=== PATIENT | male | born 1980 | race Hispanic/Latino ===

== ENCOUNTER 2019-03-28 15:49 | Emergency (ER) | payer SELFPAY ==
--- NOTE | 2019-03-28 17:10 | RAD REPORT ---
EXAM DESCRIPTION: RAD - Abdomen Acute Series - 03/28/2019 4:58 pm CLINICAL HISTORY: Abdominal pain FINDINGS: The bowel gas pattern is unremarkable. Free air is not seen beneath the diaphragm Lungs appear clear of acute infiltration. Vascular calcifications
[2019-03-28] MEDS ORDERED: HALOPERIDOL LACT 5 MG/ML INJ ONE (17:17)
[2019-03-28] MEDS ORDERED: NA CHLORIDE 0.9% 2,000 ML ONE (17:18)
[2019-03-28] MEDS ORDERED: DIPHENHYDRAMINE 50 MG/ML VIAL ONE (17:18)
[2019-03-28 17:27] LABS: Absolute Lymphocytes (CBC) 1.9 K/uL (0.7-4.9); Basophils % 0.2 % (0-1.3); Lymphocytes % 13.3 % (15.3-44.8); MPV 8.6 fL (7.6-11.3); Monocytes % 5.6 % (3.3-12.3); RBC Red Blood Cell Count 5.79 M/uL (4.33-5.43)
[2019-03-28 17:31] LABS: ALT/SGPT 20 U/L (12-78); AST/SGOT 11 U/L (15-37); Albumin 3.9 g/dL (3.4-5.0); Alkaline Phosphatase 115 U/L (45-117); BUN Blood Urea Nitrogen 15 mg/dL (7-18); Bicarbonate 29 mmol/L (21-32); Bilirubin Direct 0.2 mg/dL (0-0.2); Bilirubin Total 0.7 mg/dL (0.2-1.0); Glucose Level 257 mg/dL (74-106); Lipase 55 U/L (73-393); Potassium 4.1 mmol/L (3.5-5.1); Protein, Total 8.2 g/dL (6.4-8.2); Sodium Level 132 mmol/L (136-145)
[2019-03-28 17:47] LABS: Arterial Blood Carboxyhemoglob 0.2 % (0-1.5); Blood Gas Oxyhemoglobin 94.9 % (94-97); Blood O2 Saturation 95.9 % (92-98.5)
--- NOTE | 2019-03-28 19:06 | ER ---
Nurse's Notes [facility] Name: Ben Rudolph Age: 38 yrs Sex: Male : 1980 Arrival Date: 03/28/2019 Time: 15:52 Bed 8 Private MD: None, None Diagnosis: Nausea and vomiting Presentation: 03/28 16:07 Presenting complaint: Patient states: upper abd pain and nausea/vomiting that began aa5 . Pt's reports pt was seen in [place] [facility] twice over the weekend and CT scan was negative, reports being prescribed promethazine and ranitidine without relief of symptoms. Transition of care: patient was not received from another setting of care. Onset of symptoms was March 2019. Risk Assessment: Do you want to hurt yourself or someone else? Patient reports no desire to harm self or others. Initial Sepsis Screen: Does the patient meet any 2 criteria? No. Patient's initial sepsis screen is negative. Does the patient have a suspected source of infection? No. Patient's initial sepsis screen is negative. Care prior to arrival: None. 16:07 Acuity: LAVONNE 2 aa5 16:07 Method Of Arrival: Ambulatory aa5 Historical: - Allergies: 16:11 No Known Allergies; aa5 - Home Meds: 16:11 promethazine 25 mg oral tab every 6 hours [Active]; ranitidine HCl 150 mg oral tab 2 aa5 times per day [Active]; Metformin Oral [Active]; - PMHx: 16:11 Diabetes - NIDDM; aa5 - PSHx: 16:11 None; aa5 - Immunization history:: Adult Immunizations unknown. - Social history:: Smoking status: Patient uses tobacco products, smokes one-half pack cigarettes per day. - Ebola Screening: : No symptoms or risks identified at this time. Screenin:45 Abuse screen: Denies threats or abuse. Denies injuries from another. Nutritional sg screening: No deficits noted. Tuberculosis screening: No symptoms or risk factors identified. Never had TB. Fall Risk None identified. Assessment: 16:40 General: Appears in no apparent distress. ill, slender, well groomed, well developed, sg well nourished, Behavior is cooperative, appropriate for age, quiet. Pain: Complains of pain in abdomen Quality of pain is described as aching, tender. Neuro: Level of Consciousness is awake, alert, obeys commands, Oriented to person, place, time, situation, Health Sanitarian are equal bilaterally Moves all extremities. Full function Speech is normal, Facial symmetry appears normal. Cardiovascular: Patient's skin is warm and dry. Respiratory: Airway is patent Respiratory effort is even, unlabored, Respiratory pattern is regular, symmetrical. GI: Abdomen is round non-distended. : No signs and/or symptoms were reported regarding the genitourinary system. EENT: No signs and/or symptoms were reported regarding the EENT system. Derm: Skin is pink, warm \T\ dry. Musculoskeletal: Circulation, motion, and sensation intact. Range of motion: intact in all extremities, Swelling absent. 19:11 General: Appears in no apparent distress. slender, Behavior is cooperative, quiet. ea Pain: Denies pain. Neuro: Level of Consciousness is awake, alert, obeys commands, Oriented to person, place, time, situation. Cardiovascular: Patient's skin is warm and dry. Respiratory: Airway is patent Respiratory effort is even, unlabored, Respiratory pattern is regular, symmetrical. Derm: Skin is pink, warm \T\ dry. Musculoskeletal: Circulation, motion, and sensation intact. 20:16 Reassessment: Patient and/or family updated on plan of care and expected duration. Pain ea level reassessed. Pt resting with eyes closed. Pt blood pressure elevated, denies headache, chest pain or SOB. Provider aware. 20:42 Reassessment: Patient and/or family updated on plan of care and expected duration. Pain ea level reassessed. Provider at bedside, medication order obtained, medication administered pt tolerated well. 21:41 Reassessment: Patient and/or family updated on plan of care and expected duration. Pain ea level reassessed. Pt resting with eyes closed, respirations even and unlabored. Chest expansions even and symmetrical. 21:42 Reassessment: PTs BP continues to be elevated, provider aware, pt to be monitored. ea Awaiting for blood pressure to decrease before discharge. 22:05 Reassessment: Patient and/or family updated on plan of care and expected duration. Pain ea level reassessed. Patient is alert, oriented x 3, equal unlabored respirations, skin warm/dry/pink. Pt taken to CT. 22:30 Reassessment: Patient and/or family updated on plan of care and expected duration. Pain ea level reassessed. Patient is alert, oriented x 3, equal unlabored respirations, skin warm/dry/pink. Returned from CT. 23:30 Reassessment: Patient and/or family updated on plan of care and expected duration. Pain ea level reassessed. Patient is alert, oriented x 3, equal unlabored respirations, skin warm/dry/pink. Pt reports he feels a little better but still feels nauseous. 03/29 00:15 Reassessment: Patient and/or family updated on plan of care and expected duration. Pain ea level reassessed. Patient is alert, oriented x 3, equal unlabored respirations, skin warm/dry/pink. Pt reports he feels hungry, provider notified and verbalized he could have something to eat. Pt given sandwich and chips. 00:30 Reassessment: Patient and/or family updated on plan of care and expected duration. Pain ea level reassessed. Patient is alert, oriented x 3, equal unlabored respirations, skin warm/dry/pink. Pt ate a few bites of sandwich tolerated well. Pt tolerating PO fluids well. 01:42 Reassessment: Patient and/or family updated on plan of care and expected duration. Pain ea level reassessed. Patient is alert, oriented x 3, equal unlabored respirations, skin warm/dry/pink. Pt tolerated PO fluids and food. Pt reports he is feeling better. Blood pressure decreased. Patient states feeling better. Patient states symptoms have improved. 01:58 Reassessment: Patient and/or family updated on plan of care and expected duration. Pain ea level reassessed. Patient is alert, oriented x 3, equal unlabored respirations, skin warm/dry/pink. Discharge instruction given to patient and , both verbalized the understanding of instruction. Pt left ED per wheelchair, accompanied by family. Pt tolerating well. Pt assisted to private vehicle per ED staff, pt tolerated well. Patient states feeling better. Patient states symptoms have improved. Vital Signs: 03/28 16:09 BP 119 / 86; Pulse 113; Resp 20; Temp 98.9(O); Pulse Ox 100% on R/A; Weight 60.78 kg aa5 (R); Height 5 ft. 5 in. (165.10 cm) (R); Pain 9/10; 17:29 BP 119 / 85; Pulse 111; Resp 20; Pulse Ox 100% on R/A; sg 18:55 BP 153 / 84; Pulse 100; Resp 17; Pulse Ox 100% on R/A; sg 19:10 BP 207 / 130; Pulse 106; Resp 18; Pulse Ox 100% ; ea 20:03 BP 199 / 122; Pulse 108; Resp 18; Temp 99; Pulse Ox 100% on R/A; ea 21:15 BP 168 / 100; Pulse 108; Resp 18; Pulse Ox 100% ; ea 21:30 BP 205 / 118; Pulse 118; Resp 18; Pulse Ox 100% ; ea 22:00 BP 176 / 110; Pulse 109; Resp 18; Pulse Ox 99% on R/A; ea 23:09 BP 186 / 110; Pulse 118; Resp 16; Pulse Ox 100% on R/A; ea 23:30 BP 178 / 103; Pulse 114; Resp 16; Pulse Ox 100% on R/A; lp1 07 00:01 BP 183 / 109; Pulse 111; Resp 18; Pulse Ox 100% ; ea 00:30 BP 157 / 98; Pulse 93; Resp 18; Pulse Ox 98% on R/A; ea 00:45 BP 137 / 95; Pulse 97; Resp 18; Pulse Ox 100% on R/A; ea 01:43 BP 141 / 95; Pulse 92; Resp 18; Pulse Ox 99% on R/A; ea 03/28 16:09 Body Mass Index 22.30 (60.78 kg, 165.10 cm) aa5 ED Course: 03/28 15:52 Patient arrived in ED. dp 15:52 None, None is Private Physician. dp 16:07 Arm band placed on. aa5 16:09 Triage completed. aa5 16:15 Billy Ellis MD is Attending Physician. ps1 16:42 Patient has correct armband on for positive identification. Placed in gown. Bed in low sg position. Side rails up X2. Pulse ox on. NIBP on. 16:57 Abdomen Acute Series XRAY In Process Unspecified. EDMS 17:00 Rolando Villanueva, RN is Primary Nurse. sg 17:05 Initial lab(s) drawn, by me, sent to lab. Inserted saline lock: 20 gauge in right ms forearm, using aseptic technique. Blood collected. 22:26 CT Aorta for Dissection In Process Unspecified. EDMS 07 02:01 No provider procedures requiring assistance completed. IV discontinued, intact, ea bleeding controlled, No redness/swelling at site. Pressure dressing applied. Administered Medications: 03/28 17:08 Drug: Benadryl 50 mg Route: IVP; Site: right forearm; sg 18:24 Follow up: Response: No adverse reaction sg 17:09 Drug: NS 0.9% (20 ml/kg) 20 ml/kg Route: IV; Rate: 1 bolus; Site: right forearm; sg 22:00 Follow up: Response: No adverse reaction; IV Status: Completed infusion; IV Intake: ea 1000ml 17:09 Drug: HALdol 2.5 mg Route: IVP; Site: right forearm; sg 18:23 Follow up: Response: No adverse reaction sg 20:42 Drug: Phenergan 12.5 mg Route: IVP; Site: right antecubital; ea 21:15 Follow up: Response: No adverse reaction ea 23:29 Drug: cloNIDine 0.2 mg Route: PO; lp1 03/29 00:59 Follow up: Response: No adverse reaction; Blood pressure is lowered ea Point of Care Testing: Blood Glucose: 03/28 16:09 Blood Glucose: 241 mg/dL; aa5 Ranges: Intake: 22:00 IV: 1000ml; Total: 1000ml. ea Outcome: 18:47 Discharge ordered by . ps1 03/29 02:02 Discharged to home via wheelchair, with family. ea Condition: improved Discharge instructions given to patient, family, Instructed on discharge instructions, follow up and referral plans. medication usage, Demonstrated understanding of instructions, follow-up care, medications, Prescriptions given X 4. 02:02 Patient left the ED. ea Signatures: Dispatcher [employer] EDWA Rolando Villanueva, RN Alessandra Rodgers ms, Audri, RN RN aa5 Michelle Michel RN RN lp1 Katharina Benoit RN Billy Hester ea, MD MD ps1 Pena, Darian dp
--- NOTE | 2019-03-28 19:07 | EDPHYS ---
Physician Documentation [facility] Name: Ben Rudolph Age: 38 yrs Sex: Male : 1980 Arrival Date: 03/28/2019 Time: 15:52 Bed 8 Private MD: None, None ED Physician Billy Ellis HPI: 03/28 18:38 This 38 yrs old Male presents to ER via Ambulatory with complaints of ps1 Nausea/Vomiting. 18:38 patient states that he had had symptoms for over a week. He has been seen and evaluated ps1 at [facility] [[email or web address]] x [address] scan which was negative. He is a poorly controlled diabetic with blood sugars over 350 at [facility] [[email or web address]] and >250 here today. He was discharged with promethazine. States that his symptoms are persistent. No fever. . Historical: - Allergies: 16:11 No Known Allergies; aa5 - Home Meds: 16:11 promethazine 25 mg oral tab every 6 hours [Active]; ranitidine HCl 150 mg oral tab 2 aa5 times per day [Active]; Metformin Oral [Active]; - PMHx: 16:11 Diabetes - NIDDM; aa5 - PSHx: 16:11 None; aa5 - Immunization history:: Adult Immunizations unknown. - Social history:: Smoking status: Patient uses tobacco products, smokes one-half pack cigarettes per day. - Ebola Screening: : No symptoms or risks identified at this time. ROS: 18:38 Constitutional: Negative for fever, chills, and weight loss, Eyes: Negative for injury, ps1 pain, redness, and discharge, Cardiovascular: Negative for chest pain, palpitations, and edema, Respiratory: Negative for shortness of breath, cough, wheezing, and pleuritic chest pain, MS/Extremity: Negative for injury and deformity, Skin: Negative for injury, rash, and discoloration, Neuro: Negative for headache, weakness, numbness, tingling, and seizure. 18:38 Abdomen/GI: Positive for nausea and vomiting, abdominal cramps. Exam: 18:38 Constitutional: This is a well developed, well nourished patient who is awake, alert, ps1 and in no acute distress. Head/Face: Normocephalic, atraumatic. Eyes: Pupils equal round and reactive to light, extra-ocular motions intact. Lids and lashes normal. Conjunctiva and sclera are non-icteric and not injected. Chest/axilla: Normal chest wall appearance and motion. Nontender with no deformity. No lesions are appreciated. Respiratory: Lungs have equal breath sounds bilaterally, clear to auscultation and percussion. No rales, rhonchi or wheezes noted. No increased work of breathing, no retractions or nasal flaring. MS/ Extremity: Pulses equal, no cyanosis. Neurovascular intact. Full, normal range of motion. Neuro: Awake and alert, GCS 15, oriented to person, place, time, and situation. Cranial nerves II-XII grossly intact. Sensory grossly intact. 18:38 Cardiovascular: Rate: tachycardic, Rhythm: regular, Pulses: no pulse deficits are appreciated. 18:38 Abdomen/GI: Inspection: abdomen appears normal, Bowel sounds: normal, Palpation: soft, nontender. Vital Signs: 16:09 BP 119 / 86; Pulse 113; Resp 20; Temp 98.9(O); Pulse Ox 100% on R/A; Weight 60.78 kg aa5 (R); Height 5 ft. 5 in. (165.10 cm) (R); Pain 9/10; 17:29 BP 119 / 85; Pulse 111; Resp 20; Pulse Ox 100% on R/A; sg 18:55 BP 153 / 84; Pulse 100; Resp 17; Pulse Ox 100% on R/A; sg 19:10 BP 207 / 130; Pulse 106; Resp 18; Pulse Ox 100% ; ea 20:03 BP 199 / 122; Pulse 108; Resp 18; Temp 99; Pulse Ox 100% on R/A; ea 21:15 BP 168 / 100; Pulse 108; Resp 18; Pulse Ox 100% ; ea 21:30 BP 205 / 118; Pulse 118; Resp 18; Pulse Ox 100% ; ea 22:00 BP 176 / 110; Pulse 109; Resp 18; Pulse Ox 99% on R/A; ea 23:09 BP 186 / 110; Pulse 118; Resp 16; Pulse Ox 100% on R/A; ea 23:30 BP 178 / 103; Pulse 114; Resp 16; Pulse Ox 100% on R/A; lp1 03/29 00:01 BP 183 / 109; Pulse 111; Resp 18; Pulse Ox 100% ; ea 00:30 BP 157 / 98; Pulse 93; Resp 18; Pulse Ox 98% on R/A; ea 00:45 BP 137 / 95; Pulse 97; Resp 18; Pulse Ox 100% on R/A; ea 01:43 BP 141 / 95; Pulse 92; Resp 18; Pulse Ox 99% on R/A; ea 03/28 16:09 Body Mass Index 22.30 (60.78 kg, 165.10 cm) aa5 MDM: 03/28 16:23 Patient medically screened. ps1 18:44 Data reviewed: vital signs, nurses notes, lab test result(s), radiologic studies, and ps1 as a result, I will discharge patient. Counseling: I had a detailed discussion with the patient and/or guardian regarding: the historical points, exam findings, and any diagnostic results supporting the discharge/admit diagnosis, lab results, radiology results, the need for outpatient follow up, for definitive care, Dr Rivera. ED course: labs improved since [facility]. Pt not actively vomiting. PO challenged. Referral to GI. Home with berto. . 03/28 16:37 Order name: CBC with Diff; Complete Time: 17:42 ps1 03/28 16:37 Order name: Hepatic Function; Complete Time: 17:42 ps1 03/28 16:37 Order name: Lipase; Complete Time: 17:42 ps1 03/28 16:37 Order name: CMP; Complete Time: 17:42 ps1 03/28 16:37 Order name: ABG; Complete Time: 18:03 ps1 03/28 18:54 Order name: Urine Dipstick--Ancillary (enter results); Complete Time: 20:29 em1 03/28 16:37 Order name: Abdomen Acute Series XRAY; Complete Time: 17:15 ps1 03/28 21:29 Order name: Glucose, Ancillary Testing; Complete Time: 21:45 EDMS 03/28 21:46 Order name: CT Aorta for Dissection rn 03/28 16:37 Order name: IV Saline Lock; Complete Time: 17:05 ps1 03/28 16:37 Order name: Labs collected and sent; Complete Time: 17:05 ps1 03/28 16:37 Order name: Urine Dipstick-Ancillary (obtain specimen); Complete Time: 18:53 ps1 03/28 18:24 Order name: PO challenge; Complete Time: 18:55 sg Administered Medications: 17:08 Drug: Benadryl 50 mg Route: IVP; Site: right forearm; sg 18:24 Follow up: Response: No adverse reaction sg 17:09 Drug: NS 0.9% (20 ml/kg) 20 ml/kg Route: IV; Rate: 1 bolus; Site: right forearm; sg 22:00 Follow up: Response: No adverse reaction; IV Status: Completed infusion; IV Intake: ea 1000ml 17:09 Drug: HALdol 2.5 mg Route: IVP; Site: right forearm; sg 18:23 Follow up: Response: No adverse reaction sg 20:42 Drug: Phenergan 12.5 mg Route: IVP; Site: right antecubital; ea 21:15 Follow up: Response: No adverse reaction ea 23:29 Drug: cloNIDine 0.2 mg Route: PO; lp1 07 00:59 Follow up: Response: No adverse reaction; Blood pressure is lowered ea Point of Care Testing: Blood Glucose: 03/28 16:09 Blood Glucose: 241 mg/dL; aa5 Ranges: Critical Glucose Levels:Adult <50 mg/dl or >400 mg/dl <40 mg/dl or >180 mg/dl Disposition: 03/28/19 18:47 Discharged to Home. Impression: Nausea and vomiting. - Condition is Stable. - Prescriptions for Zofran 4 mg Oral Tablet - take 1 tablet by ORAL route every 12 hours As needed; 20 tablet. Bentyl 10 mg Oral Capsule - take 1 capsule by ORAL route every 6 hours As needed; 40 capsule. Carafate 1 gram Oral Tablet - take 1 tablet by ORAL route 4 times per day take on an empty stomach, beginning on waking and last dose at bedtime; 100 tablet. Prilosec 20 mg Oral Capsule - take 1 capsule by ORAL route once daily; 10 capsule. - Medication Reconciliation Form, Thank You Letter, Antibiotic Education, Prescription Opioid Use form. - Follow up: Emergency Department; When: As needed; Reason: Fever > 102 F, Worsening of condition. Follow up: Private Physician; When: Dr. Rivera; Reason: Further diagnostic work-up, Recheck today's complaints, Continuance of care. - Problem is an ongoing problem. - Symptoms have improved. Signatures: Dispatcher [employer] EDMS Rolando Villanueva RN RN sg Chas Hayward MD MD rn Calderon, Audri, RN RN aa5 Michelle Michel, RN RN lp1 Katharina Benoit, RN RN ea Billy Ellis MD MD ps1 Corrections: (The following items were deleted from the chart) 03/29 02:02 03/28 18:47 03/28/2019 18:47 Discharged to Home. Impression: Nausea and vomiting. ea Condition is Stable. Forms are Medication Reconciliation Form, Thank You Letter, Antibiotic Education, Prescription Opioid Use. Follow up: Emergency Department; When: As needed; Reason: Fever > 102 F, Worsening of condition. Follow up: Private Physician; When: Dr. Rivera; Reason: Further diagnostic work-up, Recheck today's complaints, Continuance of care. Problem is an ongoing problem. Symptoms have improved. ps1
[2019-03-28 19:21] LABS: Urine Blood TRACE (NEG); Urine Glucose 2+ (NEG); Urine Protein 1+ (NEG); Urine Specific Gravity 1.015 (1.005-1.030)
[2019-03-28] MEDS ORDERED: PROMETHAZINE 25 MG/ML VIAL ONE (20:52)
[2019-03-28] MEDS ORDERED: cloNIDine HCl 0.1 MG TAB ONE (23:41)
--- NOTE | 2019-03-29 10:16 | RAD REPORT ---
EXAM DESCRIPTION: CT - Angio Aorta For Dissection - 03/29/2019 2:44 am TECHNIQUE: CT angiogram Aorta For Dissection CLINICAL HISTORY: 38 years Male abd pain, vomiting, hypertensive 205/118 TECHNIQUE: Contiguous axial images obtained through the chest, abdomen, and pelvis during the rapid administration of IV contrast. Coronal and sagittal reformatted images provided. This CT exam was performed according to our departmental dose-optimization program, which includes on e or more of the following dose reduction techniques: automated exposure control, adjustment of the m A and/or kV according to patient size, and/or use of iterative reconstruction technique. COMPARISON: No prior exams provided for comparison. FINDINGS: The heart is normal in size without pericardial effusion. There is no aortic aneurysm or d issection. The major branches of the aorta are patent. There is no mediastinal or retroperitoneal hem orrhage. No visualized pulmonary embolus. 4 mm ill-defined right middle lobe pulmonary nodule. Two adjacent ill-defined left lower lobe pulmona ry nodules measure up to 1 cm. The lungs are otherwise clear without consolidation, effusion, or pneu mothorax. No lymphadenopathy in the chest. The liver, biliary tree, gallbladder, pancreas, spleen, adrenal glands, kidneys, urinary bladder, and osseous structures are normal. There is no bowel inflammation, obstruction, free intraperitoneal air, or ascites. The appendix is no rmal. No abdominal or pelvic lymphadenopathy IMPRESSION: No aortic aneurysm, dissection, or rupture. Ill-defined pulmonary nodules measure up to 1 cm. Recommend noncontrast chest CT at 3-6 months, then consider another at 18-24 months. No acute findings in the abdomen or pelvis. Electronically signed by: Kacy Rosales MD 03/28/2019 10:42 PM CDT Due to temporary technical issues with the PACS/Fluency reporting system, reports are being signed by the in house radiologist as a courtesy to ensure prompt reporting. The interpreting radiologist is f ully responsible for the content of the report.
== END 2019-03-29 02:02 | disposition home or self-care (01) ==
LOC: ER 15:49
DX: R11.2 Nausea with vomiting, unspecified (principal); E11.9 Type 2 diabetes mellitus without complications; F17.210 Nicotine dependence, cigarettes, uncomplicated
CPT/HCPCS: 36415; 71275; 74022; 74175; 80053; 80076; 81003; 82805; 82962; 83690; 85025; 99284; J1630; J2550; J7030; Q9967

== ENCOUNTER 2020-01-30 11:53 | Emergency (ER) | payer SELFPAY ==
[2020-01-30 13:50] LABS: Absolute Lymphocytes (CBC) 1.2 K/uL (0.7-4.9); Basophils % 0.3 % (0-1.3); Lymphocytes % 3.2 % (15.3-44.8); MPV 8.8 fL (7.6-11.3); RBC Red Blood Cell Count 4.42 M/uL (4.33-5.43)
[2020-01-30] MEDS ORDERED: CEFTRIAXONE/SWI 1gm 2 GM/20 ML SYR ONE (13:53)
--- NOTE | 2020-01-30 14:07 | RAD REPORT ---
EXAM DESCRIPTION: CT - Head C Spine Mpr Wo Con - 01/30/2020 1:41 pm CLINICAL HISTORY: Head and neck pain. Radiculopathy COMPARISON: None. TECHNIQUE: Computed axial tomography of the head and cervical spine was obtained. Sagittal and coronal reconstruction was performed. All CT scans are performed using dose optimization technique as appropriate and may include automated exposure control or mA/KV adjustment according to patient size. FINDINGS: An intracranial bleed is not seen. The ventricles are normal in caliber. An extra-axial fl uid collection is not noted.Fluid within the visualized sinuses and mastoids is not seen. Mild chroni c ethmoid sinusitis A cervical fracture is not visualized. No dislocation is noted. Air is present within predominately t he posterior aspect of the spinal canal from C4-T1. Small amount of air is present within the posteri or tissues of the upper thoracic spine. Evaluation of the spinal cord/spinal canal is limited on CAT scan. IMPRESSION: No acute intracranial abnormality is seen. Air is present within the spinal canal C4-T1. This may be secondary to trauma, iatrogenic or infectio n
--- NOTE | 2020-01-30 15:06 | RAD REPORT ---
EXAM DESCRIPTION: [place] Single View01/30/2020 3:00 pm CLINICAL HISTORY: Chest pain COMPARISON: 2018 FINDINGS: The lungs appear clear of acute infiltrate. The heart is normal size IMPRESSION: No acute abnormalities displayed
[2020-01-30 15:07] LABS: Albumin 1.9 g/dL (3.4-5.0); Bilirubin Total 0.6 mg/dL (0.2-1.0); Potassium 3.2 mmol/L (3.5-5.1); Protein, Total 6.5 g/dL (6.4-8.2)
[2020-01-30] MEDS ORDERED: NA CHLORIDE 0.9% 1,000 ML ONE (15:15)
[2020-01-30 15:37] LABS: Arterial Blood Carboxyhemoglob 1.1 % (0-1.5); Blood Gas Oxyhemoglobin 94.4 % (94-97); Blood O2 Saturation 96.9 % (92-98.5)
[2020-01-30] MEDS ORDERED: VANCOMYCIN 1.25 GM in NA CHLORIDE 0.9% 250 ML IVPB ONE (15:45)
--- NOTE | 2020-01-30 16:02 | EDPHYS ---
Physician Documentation [facility] Name: Ben Rudolhp Age: 39 yrs Sex: Male : 1980 Arrival Date: 01/30/2020 Time: 11:55 Bed 23 Private MD: JAKE Physician David Callaway HPI: 01/29 13:17 This 39 yrs old Male presents to ER via Wheelchair with complaints of General cindy Weakness. 13:17 The patient or guardian complains of decreased range of motion, pain, tenderness. The cindy symptoms are located diffusely. Onset: The symptoms/episode began/occurred 3 day(s) ago. Context: The problem was sustained at an unknown location, The neck injury/problem resulted from from unknown cause. The patient complains of pain to the top of head, forehead, left frontal area, left side of the back of head, left occipital area, left base of the skull, right frontal area, right side of the back of head, right occipital area and right base of the skull. The patient describes the headache as constant. fever , doev, no trauma, stiff neck. Severity of symptoms: At its worst the pain was moderate, in the emergency department the pain is unchanged. Historical: - Allergies: 12:09 No Known Allergies; ca1 - Home Meds: 12:09 metformin 1,000 mg oral tab 1 tab 2 times per day [Active]; glimepiride 4 mg Oral tab 1 ca1 tab once daily [Active]; atorvastatin 20 mg oral tab 1 tab once daily [Active]; - PMHx: 12:09 Diabetes - NIDDM; High Cholesterol; ca1 - PSHx: 12:09 None; ca1 - Immunization history:: Adult Immunizations up to date. - Social history:: Smoking status: Patient/guardian denies using tobacco, but has a distant history of tobacco abuse. - Family history:: not pertinent. ROS: 13:17 Constitutional: Negative for fever, chills, and weight loss, Eyes: Negative for injury, cindy pain, redness, and discharge, ENT: Negative for injury, pain, and discharge, Neck: Negative for injury, pain, and swelling, Cardiovascular: Negative for chest pain, palpitations, and edema, Respiratory: Negative for shortness of breath, cough, wheezing, and pleuritic chest pain, Abdomen/GI: Negative for abdominal pain, nausea, vomiting, diarrhea, and constipation, Back: Negative for injury and pain, : Negative for injury, bleeding, discharge, and swelling, MS/Extremity: Negative for injury and deformity, Skin: Negative for injury, rash, and discoloration, Psych: Negative for depression, anxiety, suicide ideation, homicidal ideation, and hallucinations, Allergy/Immunology: Negative for hives, rash, and allergies, Endocrine: Negative for neck swelling, polydipsia, polyuria, polyphagia, and marked weight changes, Hematologic/Lymphatic: Negative for swollen nodes, abnormal bleeding, and unusual bruising. 13:17 Neuro: Positive for headache, weakness. Exam: 13:17 Constitutional: This is a well developed, well nourished patient who is awake, alert, cindy and in no acute distress. Head/Face: Normocephalic, atraumatic. Eyes: Pupils equal round and reactive to light, extra-ocular motions intact. Lids and lashes normal. Conjunctiva and sclera are non-icteric and not injected. Cornea within normal limits. Periorbital areas with no swelling, redness, or edema. ENT: Nares patent. No nasal discharge, no septal abnormalities noted. Tympanic membranes are normal and external auditory canals are clear. Oropharynx with no redness, swelling, or masses, exudates, or evidence of obstruction, uvula midline. Mucous membranes moist. Chest/axilla: Normal chest wall appearance and motion. Nontender with no deformity. No lesions are appreciated. Respiratory: Lungs have equal breath sounds bilaterally, clear to auscultation and percussion. No rales, rhonchi or wheezes noted. No increased work of breathing, no retractions or nasal flaring. Abdomen/GI: Soft, non-tender, with normal bowel sounds. No distension or tympany. No guarding or rebound. No evidence of tenderness throughout. Back: No spinal tenderness. No costovertebral tenderness. Full range of motion. Male : Normal genitalia with no discharge or lesions. Skin: Warm, dry with normal turgor. Normal color with no rashes, no lesions, and no evidence of cellulitis. MS/ Extremity: Pulses equal, no cyanosis. Neurovascular intact. Full, normal range of motion. Neuro: Awake and alert, GCS 15, oriented to person, place, time, and situation. Cranial nerves II-XII grossly intact. Motor strength 5/5 in all extremities. Sensory grossly intact. Cerebellar exam normal. Normal gait. Psych: Awake, alert, with orientation to person, place and time. Behavior, mood, and affect are within normal limits. 13:17 Neck: External neck: is normal, C-spine: appears grossly normal, no acute changes, Thyroid: appears normal, Trachea: is midline with no obvious abnormalities, no acute changes, ROM/movement: limited range of motion, nuchal rigidity, is present. 13:17 Chest/axilla: Exam negative for 13:17 Cardiovascular: Rate: tachycardic, Rhythm: regular, Pulses: Pulses are 4+ in bilateral radial, brachial, femoral, popliteal, posterior tibial and and dorsalis pedis arteries.. Heart sounds: normal, Edema: is not appreciated, JVD: is not appreciated. Vital Signs: 12:00 BP 112 / 68; Pulse 120; Resp 18 S; Temp 97.7(O); Pulse Ox 100% on R/A; Weight 65.77 kg ca1 (R); Height 5 ft. 6 in. (167.64 cm) (R); 13:05 BP 131 / 77; Pulse 115; Resp 20 S; Temp 98.0(TE); Pulse Ox 99% on R/A; iw 14:39 BP 128 / 67; Pulse 114; Resp 20 S; Temp 98.5; Pulse Ox 100% on R/A; Pain 8/10; iw 12:00 Body Mass Index 23.40 (65.77 kg, 167.64 cm) ca1 [place] Coma Score: 13:22 Eye Response: spontaneous(4). Verbal Response: oriented(5). Motor Response: obeys cindy commands(6). Total: 15. MDM: 12:53 Patient medically screened. [facility] 13:21 Data reviewed: vital signs, nurses notes, lab test result(s), EKG, radiologic studies, [facility] CT scan, plain films. 13:21 Differential diagnosis: arthritis, bacterial meningitis, Cervical Disc Herniation cindy bacterial infection, intracerebral hemorrhage, subarachnoid bleed, subdural hematoma, traumatic injuries, cervical strain, Epidural Abcess Epidural Bleed Spondylosis viral meningitis. 13:22 Differential Diagnosis altered mental status, sepsis. Data interpreted: Cardiac cindy monitor: rate is 115 beats/min, rhythm is normal sinus rhythm, regular, Pulse oximetry: on room air is 99 %. Test interpretation: by ED physician or midlevel provider: ECG, plain radiologic studies. Counseling: I had a detailed discussion with the patient and/or guardian regarding: the historical points, exam findings, and any diagnostic results supporting the discharge/admit diagnosis, lab results, radiology results, the need for further work-up and treatment in the hospital. 16:25 ED course: no tap , ok per [facility], agrees with plan, will accept to [facility], [facility]. [facility] 01/29 13:16 Order name: CBC with Diff [facility] 01/29 13:16 Order name: Comprehensive Metabolic Panel; Complete Time: 15:31 [facility] 01/29 13:16 Order name: Blood Culture Adult (2) [facility] 01/29 13:16 Order name: Urine Culture [facility] 01/29 13:16 Order name: Procalcitonin; Complete Time: 15:31 [facility] 01/29 13:16 Order name: Lactate; Complete Time: 15:31 [facility] 01/29 13:16 Order name: CT Head C Spine; Complete Time: 15:31 [facility] 01/29 13:34 Order name: Glucose, Ancillary Testing; Complete Time: 15:31 [facility] 01/29 14:03 Order name: CBC Smear Scan [facility] 01/29 15:18 Order name: ABG; Complete Time: 15:51 [facility] 01/29 16:58 Order name: Glucose, Ancillary Testing [facility] 01/29 17:27 Order name: Urine Dipstick--Ancillary (enter results) 5 01/29 18:10 Order name: Glucose, Ancillary Testing [facility] 01/29 13:16 Order name: Urine Dipstick-Ancillary (obtain specimen); Complete Time: 16:11 [facility] 01/29 13:16 Order name: Lumbar Puncture Consent; Complete Time: 14:22 [facility] 01/29 13:16 Order name: Lumbar Puncture Setup; Complete Time: 14:22 [facility] 01/29 13:16 Order name: Chest Single View XRAY; Complete Time: 15:31 [facility] 01/29 15:18 Order name: IV Saline Lock - Large Bore; Complete Time: 15:27 [facility] 01/29 15:31 Order name: Meyer; Complete Time: 16:00 [facility] Administered Medications: 13:49 Drug: NS 0.9% 1000 ml Route: IV; Rate: 1 bolus; Site: right antecubital; iw 14:00 Drug: NS 0.9% 1000 ml Route: IV; Rate: 1 bolus; Site: right antecubital; iw 14:15 Drug: Rocephin 2 grams Route: IV; Rate: per protocol; Site: right antecubital; iw 15:32 CANCELLED (Duplicate Order): NS 0.9% 1000 ml IV at 125 ml/hr continuous cindy 15:32 CANCELLED (Duplicate Order): NS 0.9% with KCl 20 mEq/L 1000 ml IV at 150 bolus cindy continuous 15:46 Drug: NS 0.9% 1000 ml Route: IV; Rate: 1 bolus; Site: right antecubital; iw 16:00 Drug: vancoMYCIN 20 mg/kg Route: IVPB; Site: right antecubital; iw 16:35 Drug: NS 0.9% with KCl 20 mEq/L 1000 ml Route: IV; Rate: 150 ml/hr; Site: left iw antecubital; 17:12 Drug: Insulin Drip - (Insulin Regular Human 100 units, NS 0.9% 100 ml) {Co-Signature: john aa5 (America Figueroa RN).} Route: IV; Rate: 5 units/hr; Site: right forearm; Disposition: 01/30/20 16:[address] [facility]. Diagnosis are Meningitis, unspecified, Type 1 diabetes mellitus with ketoacidosis without coma, Elevated white blood cell count, Altered mental status, unspecified, Fever, unspecified, Meningismus. - Reason for transfer: Higher level of care. - Accepting physician is to [facility]. - Condition is Serious. - Problem is new. - Symptoms have improved. Critical care time excluding procedures: 13:21 Critical care time: Bedside Care: 25 minutes. Total time: 25 minutes cindy Signatures: Dispatcher [employer] David Schneider MD MD cha Williams, Irene, RN RN iw Acob, Cheryl, RN RN ca1 Audri Calderon RN aa5 Corrections: (The following items were deleted from the chart) 15:32 15:18 NS 0.9% 1000 ml IV at 125 ml/hr continuous ordered. cindy cindy 15:32 15:32 NS 0.9% with KCl 20 mEq/L 1000 ml IV at 150 bolus continuous ordered. cindy cindy 18:08 13:17 SPINAL FLUID PROFILE+LAB.LAB.BRZ ordered. EDMS EDMS 18:19 16:01 01/30/2020 16:[address] [facility]. iw Diagnosis is Meningitis, unspecified; Type 1 diabetes mellitus with ketoacidosis without coma; Elevated white blood cell count; Altered mental status, unspecified; Fever, unspecified; Meningismus. Reason for transfer: Higher level of care. Accepting physician is to [facility]. Condition is Serious. Problem is new. Symptoms have improved. cindy
--- NOTE | 2020-01-30 16:02 | ER ---
Nurse's Notes [facility] Name: Ben Rudolph Age: 39 yrs Sex: Male : 1980 Arrival Date: 01/30/2020 Time: 11:55 Bed 23 Private MD: Diagnosis: Meningitis, unspecified;Type 1 diabetes mellitus with ketoacidosis without coma;Elevated white blood cell count;Altered mental status, unspecified;Fever, unspecified;Meningismus Presentation: 01/29 12:00 Chief complaint: Spouse and/or significant other states: Last week, he had a check up ca1 with the doctor for neck pain and both shoulder pain, he was prescribed pain meds and was due for follow up today. Now, he is sent by his PCP to the ER because he has a high fever of 105.1 and his HR is high. They said he might be having an infection. Reports neck pain, low back pain radiating to the legs. Given Naproxen 500 mg BOTTOM BRUSHER. Coronavirus screen: Proceed with normal triage. Patient denies a cough. Patient denies shortness of breath or difficulty breathing. Patient denies measured and/or subjective temperature greater than 100.4F prior to today's visit. Patient denies travel on a cruise ship or to a country the [facility] currently lists as an affected area. Patient denies contact with known and/or suspected case of COVID-19. Risk Assessment: Do you want to hurt yourself or someone else? Patient reports no desire to harm self or others. Onset of symptoms was January 30, 2020. 12:00 Method Of Arrival: Wheelchair ca1 12:00 Acuity: LAVONNE 3 ca1 12:00 Ebola Screen: Patient negative for fever greater than or equal to 101.5 degrees ca1 Fahrenheit, and additional compatible Ebola Virus Disease symptoms Patient denies exposure to infectious person. Patient denies travel to an Ebola-affected area in the 21 days before illness onset. No symptoms or risks identified at this time. 13:30 Initial Sepsis Screen: Does the patient meet any 2 criteria? HR > 90 bpm. Does the iw patient have a suspected source of infection? No. Patient's initial sepsis screen is negative. 14:00 Acuity: LAVONNE 2 iw Historical: - Allergies: 12:09 No Known Allergies; ca1 - Home Meds: 12:09 metformin 1,000 mg oral tab 1 tab 2 times per day [Active]; glimepiride 4 mg Oral tab 1 ca1 tab once daily [Active]; atorvastatin 20 mg oral tab 1 tab once daily [Active]; - PMHx: 12:09 Diabetes - NIDDM; High Cholesterol; ca1 - PSHx: 12:09 None; ca1 - Immunization history:: Adult Immunizations up to date. - Social history:: Smoking status: Patient/guardian denies using tobacco, but has a distant history of tobacco abuse. - Family history:: not pertinent. Screenin:30 Abuse screen: Denies threats or abuse. Denies injuries from another. Nutritional iw screening: No deficits noted. Tuberculosis screening: No symptoms or risk factors identified. Fall Risk IV access (20 points). Assessment: 13:30 General: Appears in no apparent distress. uncomfortable, ill, Behavior is calm, iw cooperative. General: Reports feeling ill for fatigue for >3 days. Pain: Complains of pain in thoracic area and lumbar area Pain currently is 8 out of 10 on a pain scale. Neuro: Level of Consciousness is awake, alert, obeys commands, Oriented to person, place, situation, Manager Post are equal bilaterally Moves all extremities. Full function Gait is unsteady. Cardiovascular: Patient's skin is warm and dry. Respiratory: Airway is patent Respiratory effort is even, unlabored, Respiratory pattern is regular, symmetrical, Denies cough, shortness of breath. GI: Abdomen is flat, non-distended. Derm: Skin has lesions on lesions noted to ruby knee. Musculoskeletal: Range of motion: intact in all extremities. 14:42 Reassessment: Patient appears in no apparent distress at this time. Patient and/or iw family updated on plan of care and expected duration. Pain level reassessed. Patient is alert, oriented x 3, equal unlabored respirations, skin warm/dry/pink. pt states he had a fall last week, fell while trying to go to the bathroom, states he fell to his knees, did not injure hi back. pt rates back pain 8/10, 10/10 with movement. 16:38 Reassessment: Patient appears in no apparent distress at this time. Patient and/or iw family updated on plan of care and expected duration. Pain level reassessed. pt still tachycardiac at 115 bpm, pt completed 3 L NS, now infusing NS with 20 mEq KCL at 150 ml/hr, approx 2 L urine output, pt appears weak, but alert, resting quietly at this time. Vital Signs: 12:00 BP 112 / 68; Pulse 120; Resp 18 S; Temp 97.7(O); Pulse Ox 100% on R/A; Weight 65.77 kg ca1 (R); Height 5 ft. 6 in. (167.64 cm) (R); 13:05 BP 131 / 77; Pulse 115; Resp 20 S; Temp 98.0(TE); Pulse Ox 99% on R/A; iw 14:39 BP 128 / 67; Pulse 114; Resp 20 S; Temp 98.5; Pulse Ox 100% on R/A; Pain 8/10; iw 12:00 Body Mass Index 23.40 (65.77 kg, 167.64 cm) ca1 [place] Coma Score: 13:22 Eye Response: spontaneous(4). Verbal Response: oriented(5). Motor Response: obeys cindy commands(6). Total: 15. ED Course: 11:55 Patient arrived in ED. ag5 12:07 Triage completed. ca1 12:09 Arm band placed on right wrist. ca1 12:53 David Callaway MD is Attending Physician. cindy 12:56 Tori Baer, RN is Primary Nurse. iw 13:30 Patient has correct armband on for positive identification. iw 13:35 Inserted saline lock: 20 gauge in right antecubital area, using aseptic technique. iw 13:36 Initial lab(s) drawn, by hi, sent to lab. First set of blood cultures drawn by me. iw 13:41 CT Head C Spine In Process Unspecified. EDMS 14:05 Second set of blood cultures drawn by me. iw 14:23 Tori Baer, RN is Primary Nurse. iw 15:02 Chest Single View XRAY In Process Unspecified. EDMS 15:16 Notified ED physician of a critical lab result(s). CO2 11 Glucose 415. aa5 18:18 No provider procedures requiring assistance completed. Patient transferred, IV remains iw in place. Administered Medications: 13:49 Drug: NS 0.9% 1000 ml Route: IV; Rate: 1 bolus; Site: right antecubital; iw 14:00 Drug: NS 0.9% 1000 ml Route: IV; Rate: 1 bolus; Site: right antecubital; iw 14:15 Drug: Rocephin 2 grams Route: IV; Rate: per protocol; Site: right antecubital; iw 15:32 CANCELLED (Duplicate Order): NS 0.9% 1000 ml IV at 125 ml/hr continuous cindy 15:32 CANCELLED (Duplicate Order): NS 0.9% with KCl 20 mEq/L 1000 ml IV at 150 bolus cindy continuous 15:46 Drug: NS 0.9% 1000 ml Route: IV; Rate: 1 bolus; Site: right antecubital; iw 16:00 Drug: vancoMYCIN 20 mg/kg Route: IVPB; Site: right antecubital; iw 16:35 Drug: NS 0.9% with KCl 20 mEq/L 1000 ml Route: IV; Rate: 150 ml/hr; Site: left iw antecubital; 17:12 Drug: Insulin Drip - (Insulin Regular Human 100 units, NS 0.9% 100 ml) {Co-Signature: aa5 (America Figueroa RN).} Route: IV; Rate: 5 units/hr; Site: right forearm; Outcome: 16:01 ER care complete, transfer ordered by . cindy 18:18 Transferred by ground EMS [facility] to [facility], Transfer form iw completed. X-rays sent w/ patient. 18:18 Condition: stable 18:18 Discharge instructions given to patient, family, Instructed on the need for transfer, Demonstrated understanding of instructions. 18:19 Patient left the ED. Addendum: 02/02/2020 12:23 Addendum: Culture Results: Positive blood culture. Phone call Attempt #1 FAXED CULTURE s s REPORT to [facility] SHAKIR Dean RN. Signatures: Dispatcher [employer] David Schneider MD MD cha Williams, Irene, RN RN iw Calderon, Audri, RN RN aa5 Penelope Galindo RN RN ss Acob, Cheryl, RN RN ca1 [place], Ajare [facility] America Figueroa RN aa5 Corrections: (The following items were deleted from the chart) 01/29 14:47 14:05 Initial lab(s) drawn, by me, sent to lab. First set of blood cultures drawn by iw me, Second set of blood cultures drawn by me, iw
[2020-01-30] MEDS ORDERED: NS KCL 20MEQ 1,000 ML IV ONE (16:37)
[2020-01-30 16:52] LABS: Blood Morphology Comment NOTED (NOT SEEN); Platelet Estimate INCR; Poikilocytosis 1+; Urine White Blood Cell Casts OK
[2020-01-30] MEDS ORDERED: INSULIN -REGULAR HUMAN 100 UNIT in NA CHLORIDE 0.9% 100 ML IV SCH (17:00)
[2020-01-30 17:35] LABS: Urine Blood 1+ (NEG); Urine Glucose 2+ (NEG); Urine Protein 2+ (NEG); Urine Specific Gravity 1.015 (1.005-1.030); Urine pH 5.5 (5.0-7.0)
[2020-01-30 18:28] VITALS: BP 128/67; TEMP 98.5; O2SAT 100
== END 2020-01-30 18:19 | disposition short-term general hospital (02) ==
LOC: ER 11:53
DX: G03.9 Meningitis, unspecified (principal); E10.11 Type 1 diabetes mellitus with ketoacidosis with coma; D72.829 Elevated white blood cell count, unspecified; R41.82 Altered mental status, unspecified; R50.9 Fever, unspecified; R29.1 Meningismus; E78.00 Pure hypercholesterolemia, unspecified
CPT/HCPCS: 36415; 70450; 71045; 72125; 80053; 81003; 82805; 82947; 83605; 84145; 85025; 87040; 87077; 87086; 87088; 87186; 87205; 96374; 96375; 99285; J0696; J7030